=== PATIENT | female | born 1950 | race Caucasian/White ===

== ENCOUNTER 2017-10-09 14:00 | Inpatient (IN) ==
[2017-10-09 16:11] LABS: Appearance,Urine CLEAR; Bilirubin,Urine NEG (NEG); Color,Urine YELLOW; Glucose,Urine (UA) NEGATIVE (NEG); Leukocyte Esterase,Urine NEG /uL (NEG); Protein,Urine NEG (NEG); Specific Gravity,Urine 1.016 (1.000-1.035); Urine Blood NEG mg/dL (<0.03); Urobilinogen,Urine NEG (NEG)
[2017-10-09 17:00] LABS: Basophils # (Auto) 0 K/mcL (0.0-0.3); Basophils % (Auto) 0.6 % (0.0-2.0); Eosinophils # (Auto) 0.2 K/mcL (0.0-0.7); Eosinophils % (Auto) 3.3 % (0.0-7.0); Lymphocytes # (Auto) 2.1 K/mcL (1.5-4.8); Lymphocytes % (Auto) 32.5 % (15.5-49.0); Mean Cell Volume 96.6 fL (80.0-100.0); Mean Corpuscular Hemoglobin 33.8 pg (26.0-34.0); Monocytes # (Auto) 0.4 K/mcL (0.1-0.9); Monocytes % (Auto) 6.6 % (1.0-12.0); Platelet Count 262 K/mcL (140-440); RBC 4.01 M/mcL (4.00-5.20); Red Cell Distribution Width 13.1 % (11.5-14.5)
[2017-10-09 17:24] LABS: Blood Urea Nitrogen 17 mg/dl (8-23)
[2017-10-15] MEDS ORDERED: PREGABALIN 75 MG CAPSULE PO SCH (05:00)
[2017-10-15] MEDS ORDERED: oxyCODONE 10 MG TAB.ER.12H PO SCH (05:00)
[2017-10-15] MEDS ORDERED: ceFAZolin 1 GM VIAL IV SCH (05:00)
[2017-10-15] MEDS ORDERED: CELECOXIB 200 MG CAPSULE PO SCH (05:00)
[2017-10-15] MEDS ORDERED: ACETAMINOPHEN 500 MG TABLET PO SCH (05:00)
[2017-10-15] MEDS ORDERED: KETOROLAC 30 MG, ROPIVACAINE HCL/PF 49.5 ML, EPINEPHrine 0.5 MG, 0.9 % SODIUM CHLORIDE ... IJ SCH (06:30)
[2017-10-15] MEDS ORDERED: LIDOCAINE HCL/PF 100 MG/5 ML SYRINGE IV ONE (14:00)
[2017-10-15] MEDS ORDERED: PROPOFOL 200 MG/20 ML VIAL IV ONE (14:00)
[2017-10-15] MEDS ORDERED: DEXAMETHASONE 10 MG/ML VIAL IV ONE (14:00)
[2017-10-15] MEDS ORDERED: TRANEXAMIC ACID 1,000 MG/10 ML VIAL IV ONE ×2 (14:00→15:17)
[2017-10-15] MEDS ORDERED: GLYCOPYRROLATE 0.2 MG/ML VIAL IV ONE (14:00)
[2017-10-15] MEDS ORDERED: MIDAZOLAM 2 MG/2 ML VIAL IV ONE (14:00)
[2017-10-15] MEDS ORDERED: ROPIVACAINE HCL/PF 20 ML VIAL IJ ONE (14:00)
[2017-10-15] MEDS ORDERED: ONDANSETRON 4 MG/2 ML VIAL IV ONE (14:00)
[2017-10-15] MEDS ORDERED: GENTAMICIN SULFATE 800 MG/20 ML VIAL IR ONE (14:19)
[2017-10-15] MEDS ORDERED: MEPERIDINE 25 MG/ML SYRINGE IV PRN (15:06)
[2017-10-15] MEDS ORDERED: ONDANSETRON 4 MG/2 ML VIAL IV PRN ×2 (15:06→15:17)
[2017-10-15] MEDS ORDERED: PROMETHAZINE 25 MG/ML VIAL IV PRN (15:06)
[2017-10-15] MEDS ORDERED: IPRATROPIUM/ALBUTEROL 3 ML AMPUL.NEB NEB PRN (15:06)
[2017-10-15] MEDS ORDERED: FLUMAZENIL 0.1 MG/ML ML IV PRN (15:06)
[2017-10-15] MEDS ORDERED: LACTATED RINGERS 250 ML IV PRN (15:06)
[2017-10-15] MEDS ORDERED: BENZOCAINE/MENTHOL 1 LOZENGE PO PRN ×2 (15:06→15:17)
[2017-10-15] MEDS ORDERED: diphenhydrAMINE 50 MG/ML VIAL IV PRN (15:06)
[2017-10-15] MEDS ORDERED: NALOXONE HCL 0.4 MG/ML VIAL IV PRN (15:06)
[2017-10-15] MEDS ORDERED: LACTATED RINGERS 1,000 ML IV SCH (15:15)
--- NOTE | 2017-10-15 15:16 | Brief Operative Note ---
Date of procedure: 10/15/17 Pre-op diagnosis: Right knee djd Post-op diagnosis: same Procedure: right tka Grafts/Implants: Yes Anesthesia: GETA Complications Description: 10/15/17 15:16 none Surgeon: Ravi Cazares Superintendent Measurement: Austyn Chase Estimated blood loss (cc): 50 Tourniquet Time (Minutes): 45 Specimens Removed/Pathology: none sent Condition: stable Disposition: PACU
[2017-10-15] MEDS ORDERED: FLEETS ADULT ENEMA PR PRN (15:17)
[2017-10-15] MEDS ORDERED: ACETAMINOPHEN 325 MG TABLET PO PRN (15:17)
[2017-10-15] MEDS ORDERED: POLYETHYLENE GLYCOL 3350 17 GM PACKET PO PRN (15:17)
[2017-10-15] MEDS ORDERED: MAGNESIUM HYDROXIDE 30 ML ORAL.SUSP PO PRN (15:17)
[2017-10-15] MEDS ORDERED: BISACODYL 10 MG SUPP.RECT PR PRN (15:17)
[2017-10-15] MEDS ORDERED: TEMAZEPAM 15 MG CAPSULE PO PRN (15:17)
[2017-10-15] MEDS ORDERED: CLOBETASOL PROP OINT 0.05% TUBE 15GM TOPICAL PRN (15:20)
--- NOTE | 2017-10-15 15:54 | Operative Note ---
DATE OF OPERATION: 10/15/2017 PREOPERATIVE DIAGNOSIS: Right knee degenerative arthritis, severe. POSTOPERATIVE DIAGNOSIS: Right knee degenerative arthritis, severe. PROCEDURE: Right total knee arthroplasty. SURGEON: Ravi Cazares M.D. BELL TIER: Austyn Chase PA-C. ANESTHESIA: General LMA anesthesia. COMPLICATIONS: None. TOTAL TOURNIQUET TIME: 45 minutes. ESTIMATED BLOOD LOSS: 50 mL. IMPLANTS: Bostic cemented components, posterior stabilized design with an 11 mm poly. DESCRIPTION OF PROCEDURE: The patient was brought to the operating room and put to sleep with general LMA anesthesia. Once asleep, the patient had the right leg sterilely prepped and draped in the usual sterile fashion. Timeout performed to confirm the right leg as the operative site. Initials were identified, x-rays, as well as consent form. We then sterilely prepped the right knee. There was an area where she had had prior plaques and some pinkish skin. For this reason, we made the incision slightly more lateral to avoid any of this skin that was not completely normal but had been previously treated, and there was no psoriasis present. We irrigated thoroughly. We then did a medial approach to the knee, midvastus, and exposed the joint. The lateral compartment was severely worn with valgus malalignment. At this point, we proceeded with placing the pins above and below the knee to place the arrays. Intra-articular registration pins were placed and then we registered the center of hip rotation, medial and lateral malleoli, thirty points on the femur and tibia. We then balanced the knee, both at 90 degrees and 15 degrees of flexion. We then brought in the robot, made our tibial cut first and then the femoral cuts were made. All bony fragments were removed. The remnants of the meniscus was removed as well and spurs posteriorly. We then set the rotation of the tibial base plate using the computer and robot. Once done, we tapped this into place and then placed the femoral component trial. A 9 was tried. There was an hyperextension of 4 degrees with slight valgus. At this point, we went up to a size 11. It was very unstable medially. The 11 seemed to make the knee completely 0 degrees varus-valgus with a well-tracking patella and stable varus-valgus stress in all planes. This matched our preoperative plan. We then prepared the patella which measured a total thickness of 21 mm. We then cut the patella to 13 mm and placed a 31 mm patellar button with a small chamfer cut laterally. This worked very well. This tracked perfectly. We then put into place a size 3 tibial baseplate and size 3 femur. Rotation was set at 4 degrees. We then placed an 11 mm poly and then resurfaced the patella with a 31 mm patella. Excess cement was removed. We kept the knee at 45 degrees perfectly still until all cement was dried. We then took the knee through range of motion and thoroughly irrigated the knee. We then closed the midvastus approach with #1 Stratafix x2 sutures. We irrigated thoroughly and then closed the skin with 2-0 Vicryl and adhesive closure. The patient tolerated this well. There was no complication. Sterile bandage. Tourniquet time was 45 minutes. RBDemi:cricket Job ID: [id number] Doc ID: [id number] Ravi Cazares MD
[2017-10-15] MEDS: fentaNYL 100 MCG/2 ML VIAL IV PRN ×2 (16:00→16:07)
--- NOTE | 2017-10-15 16:21 | XRay Report ---
CLINICAL INFORMATION: Postsurgical follow-up TECHNIQUE: AP, lateral right knee COMPARISON: None. FINDINGS: Status post right total knee arthroplasty. Prosthetic complements are in anatomic positions. There is postsurgical soft tissue and intra-articular gas. IMPRESSION: Right total knee arthroplasty Interpreted and Authenticated by: Rodríguez Gaytan 10/15/17
[2017-10-15] MEDS: 0.45 % SODIUM CHLORIDE 1,000 ML IV SCH (17:04)
[2017-10-15] MEDS ORDERED: KETOROLAC 15 MG/ML VIAL IV SCH (18:00)
[2017-10-15] MEDS ORDERED: KETOROLAC 30 MG/ML VIAL ONE (18:37)
[2017-10-15] MEDS ORDERED: SENNOSIDES 1 TABLET PO SCH (21:00)
[2017-10-15] MEDS: ASPIRIN 325 MG ENTERIC COATED TABLET PO SCH (22:03)
[2017-10-15] MEDS: ceFAZolin 1 GM VIAL IV SCH (22:03)
[2017-10-15] MEDS: [UNRECOGNIZED DRUG - OTHER] TOPICAL SCH (22:04)
[2017-10-15] MEDS: BETAMETHASONE TOPICAL SCH (22:04)
[2017-10-15] MEDS: DOCUSATE SODIUM 100 MG CAPSULE PO SCH (22:04)
[2017-10-15] MEDS: 0.9 % SODIUM CHLORIDE 10 ML SYRINGE IV SCH (22:04)
[2017-10-15] MEDS: TERBINAFINE CRM 1% TUBE 15GM TOPICAL SCH (22:04)
[2017-10-15] MEDS: KETOROLAC 30 MG/ML VIAL IV SCH (23:58)
[2017-10-16] MEDS: 0.45 % SODIUM CHLORIDE 1,000 ML IV SCH ×2 (02:50→11:40)
[2017-10-16] MEDS: HYDROcodone/APAP 10/325MG TABLET PO PRN ×2 (03:59→16:39)
[2017-10-16] MEDS: ceFAZolin 1 GM VIAL IV SCH (04:58)
[2017-10-16] MEDS: 0.9 % SODIUM CHLORIDE 10 ML SYRINGE IV SCH (04:58)
[2017-10-16] MEDS: KETOROLAC 30 MG/ML VIAL IV SCH ×2 (06:07→11:49)
[2017-10-16] MEDS ORDERED: LEVOTHYROXINE 100 MCG TABLET PO SCH (07:30)
--- NOTE | 2017-10-16 07:41 | Orthopedic Progress Note ---
Subjective Patient information: Note initiated : 10/16/17 at 7:40 am Service Date, if different from initiated Date: [] Patient: Radha Ramos 67 y/o F admitted on 10/15/17 for Right Robotic Total Knee Arthroplasty. Chief Complaint: [Pt is stable this morning on post operative day 1 without any significant concerns or complaints. Patients vital signs have remained stable. Patients dressing is dry and is grossly instact from a neurovascular and motor standpoint. Patients 10 point ROS is otherwise negative. ] Objective Vital signs: Vital Signs Temp Pulse Resp BP BP Pulse Ox 10/16/17 06:58 98.0 F 69 14 106/62 98 10/16/17 03:00 97.4 F 66 12 149/72 99 10/16/17 00:00 97.4 F 66 12 105/56 96 10/15/17 23:00 98 10/15/17 20:00 96.5 F L 66 12 123/66 98 10/15/17 19:17 98 10/15/17 17:50 66 134/80 97 10/15/17 17:43 64 130/82 97 10/15/17 17:28 65 131/81 95 10/15/17 17:13 77 138/70 95 10/15/17 16:59 78 135/57 98 10/15/17 16:43 96 H 136/60 96 10/15/17 16:16 78 13 136/64 98 10/15/17 16:11 73 13 141/63 96 10/15/17 16:06 76 15 140/70 97 10/15/17 16:01 76 16 145/61 99 10/15/17 15:56 77 19 142/59 100 10/15/17 15:51 83 14 141/57 100 10/15/17 15:46 86 17 159/74 100 10/15/17 15:41 97.8 F 82 18 153/75 100 10/15/17 11:59 96.9 F L 73 16 162/80 98 Intake and Output 10/15/17 10/16/17 10/16/17 21:59 05:59 13:59 Intake Total 1720 / 1720 1177 / 1177 Output Total 600 / 600 700 / 700 200 / 200 Balance 1120 / 1120 477 / 477 -200 / -200 Intake: IV 1600 / 1600 977 / 977 Sodium Chloride 0.45% 1,000 ml 977 / 977 @ 100 mls/hr IV .Q10H SHIRIN Rx#: [id number] Oral 120 / 120 200 / 200 Output: Urine Catheter Amount 600 / 600 Straight 600 / 600 Void Amount 700 / 700 200 / 200 Other: Meal Dinner Percent of Meal Consumed 25% Feeding Ability Independent # Voids 1 1 1 Weight 152 lb Intake & Output: Intake & Output 10/15/17 10/16/17 10/16/17 21:59 05:59 13:59 Intake Total 1720 / 1720 1177 / 1177 Output Total 600 / 600 700 / 700 200 / 200 Balance 1120 / 1120 477 / 477 -200 / -200 Weight 152 lb Intake: IV 1600 / 1600 977 / 977 Sodium Chloride 0.45% 1,000 ml 977 / 977 @ 100 mls/hr IV .Q10H SHIRIN Rx#: [id number] Oral 120 / 120 200 / 200 Output: Urine Catheter Amount 600 / 600 Straight 600 / 600 Void Amount 700 / 700 200 / 200 Other: Meal Dinner Percent of Meal Consumed 25% Feeding Ability Independent # Voids 1 1 1 Incision: Yes healing Incision clean and dry: Yes Dressing: Yes clean Weight bearing status: full Neurological exam IM: Yes motor sensory intact, Yes neurovascular intact Extremities exam IM: Yes Foot pink and warm, Yes neurovascular intact - Labs CBC & BMP: 10/16/17 04:35 10/09/17 14:35 Labs: Orthopedic Labs 10/09/17 14:35 PT 12.6 INR 0.9 APTT 31 10/16/17 10/09/17 04:35 14:35 Hgb 13.5 Hct 35.8 L 38.7 Assessment and Plan (1) Hx of total knee arthroplasty The patient has been educated regarding dressing care, Physical Therapy recommendations, home exercises, restrictions, and follow up appointments. The patient has had all necessary DME prescribed. The patient has remained stable during their hospital course. The patient was discharge with a stable exam. Leave Dermabond patch intact until followup Status: Acute
--- NOTE | 2017-10-16 07:44 | Discharge Summary ---
Ortho Discharge - TKA - Patient Instructions Diet: Regular Diet Activity: activity as tolerated, weight bearing as tolerated Total Knee Protocol: For Total Knee: Start ROM RACHELL with stationary bike or rocking chair. Work on gaining full extension of knee. Posterior dislocation precautions provided. Hip abductor strengthening and gait training instructions provided. Apply Cryocuff as instructed. Dressing Care: May shower in 2 days Additional Instructions: CPM for home use - Problem Maintenance (1) Hx of total knee arthroplasty Status: Acute - Follow Up Plan Follow Up Appointments: Austyn Chase PA-C [[facility]] - Disposition: Home, Self-Care Prognosis: Good Rehab Potential: Good I certify that the patient requires SNF services: No Overall status at discharge: patient is progressing back to baseline - Orders For Discharge Prescriptions: Aspirin [Ecotrin] 325 mg PO BID #60 tab.ec Docusate Sodium [Colace] 100 mg PO BID #60 cap HYDROcodone/APAP 10/325MG [[place] 10-325Mg] 1 - 2 tab PO Q4HP PRN #75 tab PRN Reason: Pain Level 3-6
[2017-10-16] MEDS: ONDANSETRON ODT 4 MG TABLET SL PRN ×2 (08:18→16:39)
[2017-10-16] MEDS ORDERED: MULTIVIT,THER IRON,CA,FA & MIN 1 TABLET PO SCH (09:00)
[2017-10-16] MEDS ORDERED: MAGNESIUM OXIDE 400 MG TABLET PO SCH (09:00)
[2017-10-16] MEDS ORDERED: VITAMIN D3 1,000 UNIT TABLET PO SCH (09:00)
[2017-10-16] MEDS: ASPIRIN 325 MG ENTERIC COATED TABLET PO SCH (09:59)
[2017-10-16] MEDS: DOCUSATE SODIUM 100 MG CAPSULE PO SCH (09:59)
[2017-10-16] MEDS: [UNRECOGNIZED DRUG - OTHER] TOPICAL SCH (10:04)
[2017-10-16] MEDS: BETAMETHASONE TOPICAL SCH (10:04)
[2017-10-16] MEDS: TERBINAFINE CRM 1% TUBE 15GM TOPICAL SCH (10:04)
== END 2017-10-16 16:50 | disposition home or self-care (01) | DRG 470 ==
LOC: MEDSUR 10-15 11:13
PROVIDERS: ADMIT Orthopaedic Surgery; ATTEND Orthopaedic Surgery